=== PATIENT | female | born 1930 | race Asian ===

== ENCOUNTER 2017-12-01 20:14 | Inpatient (IN) | payer MEDICARE, OTHER ==
[~2017-12-01] VITALS: Ht 154.9 cm; Wt 53.5 kg
[2017-12-01] MEDS ORDERED: Isovue-300 100ml vial INJ PRN (20:45)
[2017-12-01] MEDS ORDERED: DIOVAN40 MG ORAL (21:02)
[2017-12-01] MEDS ORDERED: METOPROLOL SUC100 MG ORAL (21:02)
[2017-12-01] MEDS ORDERED: QUETIAPINE FUMA25 MG ORAL (21:02)
[2017-12-01] MEDS ORDERED: LEXAPRO10 MG ORAL (21:02)
[2017-12-01] MEDS ORDERED: DEXILANT60 MG ORAL (21:02)
[2017-12-01] MEDS ORDERED: TRAMADOL HCL50 MG ORAL (21:02)
[2017-12-01] MEDS ORDERED: NAMENDA10 MG ORAL (21:03)
--- NOTE | 2017-12-01 21:12 | Emergency Room Report ---
History of Present Illness General Chief Complaint: Altered Level of Consciousness Source: Patient Present Illness HPI Patient is a 87-year-old female who presented after increased altered level of consciousness. Per family member patient had been recently treated for urinary tract infection. Patient was noted to have recently been started on Seroquel after the onset of symptoms. Patient previous head CT which showed no evidence of intracranial hemorrhage. The patient was noted to have increased confusion which appear to be worse at night. Patient apparently had been increased difficulty with sleep as well as confusion. Patient prior history of dementia as well as gastroesophageal reflux disease. She been chronically taking Namenda as well as being recently started on Seroquel. Allergies: Coded Allergies: No Known Allergies (Unverified , 12/01/17) Patient History Past Medical History: see triage record Last Menstrual Period: na Reviewed Nursing Documentation: PMH: Agreed; PSxH: Agreed Nursing Documentation-PMH Hx Hypertension: Yes Hx Pacemaker: Yes Review of Systems All Other Systems: limited - by mental status Physical Exam Vital Signs Date Time Temp Pulse Resp B/P (MAP) Pulse Ox O2 Delivery O2 Flow Rate FiO2 12/01/17 20:22 97.9 60 18 185/83 98 Room Air 97.9 Sp02 EP Interpretation: reviewed, normal General Appearance: normal inspection, no apparent distress, alert, Chronically Ill Head: atraumatic ENT: normal ENT inspection, hearing grossly normal, normal voice, dry mucus membranes Neck: normal inspection, full range of motion, supple, no bony tend Respiratory: normal inspection, lungs clear, normal breath sounds, no respiratory distress, no retraction, no wheezing Cardiovascular #1: regular rate, rhythm, no edema Gastrointestinal: normal inspection, normal bowel sounds, non tender, soft, no guarding, no hernia Genitourinary: no CVA tenderness Musculoskeletal: normal inspection, normal range of motion, decreased range of motion Neurologic: normal inspection, responsive Psychiatric: normal inspection, judgement/insight normal, mood/affect normal Skin: normal inspection, normal color, no rash Medical Decision Making Diagnostic Impression: Primary Impression: FTT (failure to thrive) in adult Additional Impressions: Deep venous thrombosis Dementia Dehydration UTI (urinary tract infection) Closed compression fracture of L1 lumbar vertebra ER Course Patient presented for altered mental status. Differential diagnosis included but was not limited to ischemic stroke, subdural hematoma, subarachnoid hemorrhage, hypoglycemia, spinal cord injury, neurodegenerative disorder, urinary tract infection, hypoxemia.Because of complexity of patient's case laboratory testing and imaging studies were ordered.The patient has what appears to be chronic dementia however there appears to be some exacerbation recently.The patient's CT abdomen and pelvis read by radiology showed deep venous throat ecchymosis from the right, femoral vein to external iliac vein. A small exophytic left renal cyst compression fracture of L1 with 50% loss of height mild retropulsion. The patient was started on IV medications and Lovenox.. The patient was discussed with Dr. Velazquez for primary care physician for inpatient management Labs Test 12/01/17 21:49 12/01/17 22:30 Urine Color Yellow Urine Appearance Clear Urine pH 6 (4.5-8.0) Urine Specific [place] 1.010 (1.005-1.035) Urine Protein Negative (NEGATIVE) Urine Glucose (UA) Negative (NEGATIVE) Urine Ketones Negative (NEGATIVE) Urine Occult Blood 1+ (NEGATIVE) Urine Nitrite Negative (NEGATIVE) Urine Bilirubin Negative (NEGATIVE) Urine Urobilinogen Normal MG/DL (0.0-1.0) Urine Leukocyte Esterase 3+ (NEGATIVE) Urine RBC 2-4 /HPF (0 - 2) Urine WBC 2-4 /HPF (0 - 2) Urine Squamous Epithelial Cells Few /LPF (NONE/OCC) Urine Bacteria Few /HPF (NONE) White Blood Count 6.6 K/UL (4.8-10.8) Red Blood Count 4.09 M/UL (4.20-5.40) Hemoglobin 12.0 G/DL (12.0-16.0) Hematocrit 35.8 % (37.0-47.0) Mean Corpuscular Volume 88 FL (80-99) Mean Corpuscular Hemoglobin 29.4 PG (27.0-31.0) Mean Corpuscular Hemoglobin Concent 33.6 G/DL (32.0-36.0) Red Cell Distribution Width 11.8 % (11.6-14.8) Platelet Count 149 K/UL (150-450) Mean Platelet Volume 8.8 FL (6.5-10.1) Neutrophils (%) (Auto) 53.1 % (45.0-75.0) Lymphocytes (%) (Auto) 32.8 % (20.0-45.0) Monocytes (%) (Auto) 9.1 % (1.0-10.0) Eosinophils (%) (Auto) 4.0 % (0.0-3.0) Basophils (%) (Auto) 0.9 % (0.0-2.0) Sodium Level 137 MMOL/L (136-145) Potassium Level 4.6 MMOL/L (3.5-5.1) Chloride Level 104 MMOL/L (98-107) Carbon Dioxide Level 23 MMOL/L (21-32) Anion Gap 10 mmol/L (5-15) Blood Urea Nitrogen 27 mg/dL (7-18) Creatinine 1.2 MG/DL (0.55-1.30) Estimat Glomerular Filtration Rate mL/min (>60) Glucose Level 111 MG/DL (74-106) Lactic Acid Level 1.00 mmol/L (0.4-2.0) Calcium Level 9.6 MG/DL (8.5-10.1) Phosphorus Level 3.5 MG/DL (2.5-4.9) Magnesium Level 2.3 MG/DL (1.8-2.4) Total Bilirubin 0.4 MG/DL (0.2-1.0) Aspartate Amino Transf (AST/SGOT) 17 U/L (15-37) Alanine Aminotransferase (ALT/SGPT) 18 U/L (12-78) Alkaline Phosphatase 97 U/L (46-116) Total Creatine Kinase 46 U/L (26-308) Creatine Kinase MB 1.5 NG/ML (0.0-3.6) Creatine Kinase MB Relative Index 3.2 Troponin I 0.005 ng/mL (0.000-0.056) Pro-B-Type Natriuretic Peptide 1282 pg/mL (0-125) Total Protein 7.2 G/DL (6.4-8.2) Albumin 3.6 G/DL (3.4-5.0) Globulin 3.6 g/dL Albumin/Globulin Ratio 1.0 (1.0-2.7) Lipase 42 U/L (73-393) EKG Diagnostic Results Rate: other Rhythm: NSR ST Segments: no acute changes Rhythm Strip Diag. Results EP Interpretation: yes Rhythm: NSR, no PVC's, no ectopy, other Last Vital Signs Date Time Temp Pulse Resp B/P (MAP) Pulse Ox O2 Delivery O2 Flow Rate FiO2 12/01/17 20:22 97.9 60 18 185/83 98 Room Air 97.9 Status: unchanged Disposition: ADMITTED INPATIENT Condition: Serious Referrals: NON PHYSICIAN (PCP) Jeremiah Armando MD Dec 01, 2017 21:12
[2017-12-01 22:04] LABS: APPEARANCE,URINE CLEAR; BILIRUBIN, URINE NEGATIVE (NEGATIVE); COLOR,URINE YELLOW; GLUCOSE, URINE (UA) NEGATIVE (NEGATIVE); KETONES,URINE NEGATIVE (NEGATIVE); LEUKOCYTE ESTERASE ,URINE 3+ (NEGATIVE); NITRITE,URINE NEGATIVE (NEGATIVE); PH,URINE 6 (4.5-8.0); PROTEIN,URINE NEGATIVE (NEGATIVE); UROBILINOGEN,URINE NORMAL MG/DL (0.0-1.0)
[2017-12-01 22:51] LABS: BASOPHILS % (AUTO) 0.9 % (0.0-2.0); HEMATOCRIT 35.8 % (37.0-47.0); LYMPHOCYTES % (AUTO) 32.8 % (20.0-45.0); MEAN CORPUSCULAR VOLUME 88 FL (80-99); MONOCYTES % (AUTO) 9.1 % (1.0-10.0); NEUTROPHILS % (AUTO) 53.1 % (45.0-75.0); PLATELET COUNT 149 K/UL (150-450); RED BLOOD COUNT 4.09 M/UL (4.20-5.40); RED CELL DISTRIBUTION WIDTH 11.8 % (11.6-14.8); WHITE BLOOD COUNT 6.6 K/UL (4.8-10.8)
[2017-12-01] MEDS: Thiamine HCl 100 MG in D5W 55 ML IVPB SCH (22:57)
[2017-12-01 23:20] LABS: ANION GAP 10 mmol/L (5-15); BLOOD UREA NITROGEN 27 mg/dL (7-18); CALCIUM 9.6 MG/DL (8.5-10.1); CARBON DIOXIDE 23 MMOL/L (21-32); CHLORIDE 104 MMOL/L (98-107); CREATININE 1.2 MG/DL (0.55-1.30); POTASSIUM 4.6 MMOL/L (3.5-5.1); SODIUM 137 MMOL/L (136-145)
[2017-12-01 23:25] LABS: ALANINE AMINOTRANSFERASE 18 U/L (12-78); ALBUMIN 3.6 G/DL (3.4-5.0); ALKALINE PHOSPHATASE 97 U/L (46-116); ASPARTATE AMINO TRANSFERASE 17 U/L (15-37); BILIRUBIN,TOTAL 0.4 MG/DL (0.2-1.0); CKMB 1.5 NG/ML (0.0-3.6); CREATINE KINASE 46 U/L (26-308); PHOSPHORUS 3.5 MG/DL (2.5-4.9)
[2017-12-02] VITALS (7 sets, daily range): BP systolic 129–154; BP diastolic 45–72
[2017-12-02] MEDS ORDERED: Sodium Chloride 500ML 500 ML IV ONE
[2017-12-02] MEDS ORDERED: Enoxaparin 60mg Inj SUBQ ONE (01:00)
[2017-12-02] MEDS ORDERED: LORazepam Inj 2mg/ml 1ml IV PRN (03:00)
[2017-12-02] MEDS ORDERED: Nitroglycerin Subl 0.4mg tab SL PRN (03:15)
[2017-12-02] MEDS ORDERED: cefTRIAXone 1 GM in D5W 55 ML IVPB SCH (04:00)
[2017-12-02] MEDS ORDERED: Enoxaparin 60mg Inj SUBQ SCH (09:00)
[2017-12-02] MEDS: Enoxaparin 60mg Inj SUBQ SCH (09:19)
[2017-12-02] MEDS: Metoprolol Succinate XL 100mg tab ORAL SCH (09:21)
[2017-12-02] MEDS: Memantine 10mg tab ORAL SCH ×2 (09:22→17:49)
[2017-12-02 11:59] LABS: BASOPHILS % (AUTO) 1.1 % (0.0-2.0); EOSINOPHILS % (AUTO) 4.4 % (0.0-3.0); HEMATOCRIT 39.1 % (37.0-47.0); HEMOGLOBIN 12.8 G/DL (12.0-16.0); LYMPHOCYTES % (AUTO) 33.8 % (20.0-45.0); MEAN CORPUSCULAR VOLUME 90 FL (80-99); MONOCYTES % (AUTO) 7.6 % (1.0-10.0); NEUTROPHILS % (AUTO) 53.1 % (45.0-75.0); PLATELET COUNT 154 K/UL (150-450); RED BLOOD COUNT 4.37 M/UL (4.20-5.40); RED CELL DISTRIBUTION WIDTH 11.7 % (11.6-14.8); WHITE BLOOD COUNT 5.6 K/UL (4.8-10.8)
[2017-12-02 12:15] LABS: ALANINE AMINOTRANSFERASE 14 U/L (12-78); ALBUMIN 3.4 G/DL (3.4-5.0); ALBUMIN/GLOBULIN RATIO 0.9 (1.0-2.7); ALKALINE PHOSPHATASE 97 U/L (46-116); ANION GAP 8 mmol/L (5-15); ASPARTATE AMINO TRANSFERASE 18 U/L (15-37); BILIRUBIN,TOTAL 0.3 MG/DL (0.2-1.0); BLOOD UREA NITROGEN 19 mg/dL (7-18); CALCIUM 9.5 MG/DL (8.5-10.1); CARBON DIOXIDE 26 MMOL/L (21-32); CHLORIDE 106 MMOL/L (98-107); CREATININE 1.2 MG/DL (0.55-1.30); SODIUM 140 MMOL/L (136-145)
--- NOTE | 2017-12-02 12:19 | Diagnostic Imaging Report ---
Indication: Abdominal pain Technique: Continuous helical transaxial imaging of the abdomen and pelvis was obtained from the lung bases to the pubic symphysis during intravenous contrast administration. Coronal 2-D reformats were also obtained. Study obtained in a Siemens sensation [address] Automatic Exposure Control was utilized. Total Dose length Product (DLP): 877.[address] Dose Index Volume (CTDIvol): 17.49 mGy Comparison: None Findings: There is mild posterior basal atelectasis. Small hiatal hernia is present. There is a left renal cyst. Aorta is moderately calcified. The gallbladder is unremarkable in appearance. The pancreas and spleen are unremarkable. There is no adrenal mass. There is no hydronephrosis appreciated. Normal appendix noted. Diverticula demonstrated in the colon. No definite diverticulitis demonstrated. Uterus noted. No free fluid or free air identified. There is a filling defect within the right common femoral vein extending into the right iliac vein consistent with thrombosis. There is a right ovarian cyst measuring 1.5 cm. The bladder is unremarkable. There is a compression fracture of the L1 vertebra moderate in degree, acuity indeterminant. No bony retropulsion demonstrated. There is an anterolisthesis at L4-5 associated with hypertrophied facets and narrowing of the intervertebral disc. Similar findings at L5-S1. IMPRESSION: Deep venous thrombosis in the right femoral vein and iliac vein. Suggest confirmation with venous ultrasound. Compression fracture of the L1 vertebra, probably old. Correlate clinically. Degenerative changes in anterolistheses at L4-5 and L5-S1. Pacemaker Atherosclerotic disease Right ovarian cyst Diverticulosis of the colon Mild basilar atelectasis Left renal cyst. [facility] has communicated the preliminary results to the Emergency Department. Their findings are largely concordant with this report. The CT scanner at [facility] is accredited by the [employer] and the scans are performed using dose optimization techniques as appropriate to a performed exam including Automatic Exposure control.
--- NOTE | 2017-12-02 12:32 | Diagnostic Imaging Report ---
Indication: Dyspnea Comparison: None A single view chest radiograph was obtained. Findings: Pacemaker noted. No definite infiltrate or pulmonary vascular congestion identified. The heart is enlarged. The aorta is mildly enlarged consistent with atherosclerotic vascular disease. The bones are osteopenic. Impression: No acute disease
--- NOTE | 2017-12-02 13:30 | History and Physical Report ---
DATE OF ADMISSION: 12/02/2017 CHIEF COMPLAINT: Altered level of consciousness. HISTORY OF PRESENT ILLNESS: This is an 87-year-old female, who with recent history of being more confused in the past few days. The patient had a fall about a week ago and had a compression fracture that was confirmed with a CT scan as an outpatient. She also had urinary tract infection that was treated with oral antibiotic Cipro. However, the patient's confusion continued even with the oral antibiotic and the patient's family reported that she was getting up at night and leaving the apartment and confused. No fever or chills. No nausea or vomiting. No abdominal pain. She did have pain over her lower spine due to the compression fracture. PAST MEDICAL HISTORY: Includes history of hypertension and severe osteoarthritis of both knees and pacemaker. PAST SURGICAL HISTORY: Pacemaker placement ALLERGIES: No known drug allergies. SOCIAL HISTORY: The patient was living at home. No smoking history. No alcohol or drug use history. REVIEW OF SYSTEMS: Negative except for HPI. PHYSICAL EXAMINATION: VITAL SIGNS: Temperature 97.9, pulse 60, respirations 18, blood pressure in the emergency room 185/83, and pulse oximetry 98% on room air. GENERAL APPEARANCE: The patient is alert, slightly confused, and no apparent distress. HEENT: Normocephalic and normochromic. Extraocular muscles intact. NECK: Supple. No lymphadenopathy. CARDIOVASCULAR: Regular rate and rhythm. No murmur. No gallop. LUNG: Clear to auscultation bilaterally. No wheezing or rales. GASTROINTESTINAL: Soft, nontender, nondistended. Positive bowel sounds. EXTREMITIES: No edema, cyanosis, or clubbing NEUROLOGIC: Respond to commands. SKIN: No rash, but she has slight wound on her knee that is healing. LABORATORY AND DIAGNOSTIC DATA: Include WBC 6.6, hemoglobin 12, hematocrit 35.8, platelets 149, and neutrophils 53. Sodium 137, potassium 4.6, chloride 104, bicarb is 23, BUN 27, creatinine 1.2, glucose 111, calcium 9.6, phosphorus 3.5, and magnesium 2.3. AST is 17, ALT 18, and alkaline phosphatase 97. CK-MB 1.5. Troponin 0.05. BNP 1282. Albumin 3.6. Lipase 42 and lactic acid is 1. Urine showed +3 leukocytes and 2 to 4 rbc's, 2 to 4 wbc, few bacteria, and +[address] of abdomen and pelvis and spine were done showed consistent with compression fracture of L1 with a 50% loss of the height. Also she had DVT, but ultrasound of the lower extremity was not done. IMPRESSION: This is an 87-year-old female, who will be admitted for DVT, urinary tract infection, and failure to thrive. 1. UTI. 2. Failure to thrive. 3. Deep venous thrombosis. We will completely confirm with ultrasound. 4. Dementia. 5. Close compression fracture of L1, lumbar spine. 6. Hypertension. 7. Severe osteoarthritis of the knees. The patient will be started on IV antibiotics for urinary tract infection and we will start Lovenox for DVT and will also confirm with ultrasound, we will consider to changing it to oral medications as outpatient. 8. The patient will be admitted for minimum of two-night stay and possibly will be transferred to the shelter facility. Palak Kenney M.D. DR: LAURA JOB#: [id number] CC: MOHIT
[2017-12-02] MEDS: Thiamine HCl 100 MG in D5W 55 ML IVPB SCH (21:08)
[2017-12-03] VITALS (7 sets, daily range): BP systolic 136–163; BP diastolic 62–81
[2017-12-03] MEDS: cefTRIAXone 1 GM in D5W 110 ML IVPB SCH (06:09)
[2017-12-03] MEDS: Enoxaparin 60mg Inj SUBQ SCH (08:09)
[2017-12-03] MEDS: Memantine 10mg tab ORAL SCH ×2 (08:10→17:15)
[2017-12-03] MEDS: Metoprolol Succinate XL 100mg tab ORAL SCH (08:12)
[2017-12-03 08:32] LABS: BASOPHILS % (AUTO) 0.7 % (0.0-2.0); EOSINOPHILS % (AUTO) 3.3 % (0.0-3.0); HEMATOCRIT 32.9 % (37.0-47.0); HEMOGLOBIN 11.6 G/DL (12.0-16.0); LYMPHOCYTES % (AUTO) 34.1 % (20.0-45.0); MEAN CORPUSCULAR VOLUME 89 FL (80-99); PLATELET COUNT 138 K/UL (150-450); RED CELL DISTRIBUTION WIDTH 11.6 % (11.6-14.8); WHITE BLOOD COUNT 3.8 K/UL (4.8-10.8)
[2017-12-03 08:54] LABS: ANION GAP 10 mmol/L (5-15); BLOOD UREA NITROGEN 13 mg/dL (7-18); CALCIUM 9.7 MG/DL (8.5-10.1); CARBON DIOXIDE 24 MMOL/L (21-32); CHLORIDE 107 MMOL/L (98-107); CREATININE 1.1 MG/DL (0.55-1.30); POTASSIUM 4.2 MMOL/L (3.5-5.1); SODIUM 141 MMOL/L (136-145)
[2017-12-03] MEDS ORDERED: Fleet's Enema 133ml RECTAL SCH (10:00)
--- NOTE | 2017-12-03 10:09 | General Progress Note ---
Assessment/Plan Status: stable Status Narrative 1. UTI - Cont Rocephin and follow up urine culture. 2. Dehydration - resolved. D/C IVF. 3. Deep venous thrombosis by CT. U/S pending. 4. Dementia - cont Namenda 10 mg po BID. 5. Close compression fracture of L1, lumbar spine - cont Pain management. Pain well controlled. 6. Hypertension - increase Avapro 75 mg one po daily. cont Toprol XL 100 mg daily. 7. Severe osteoarthritis of the knees - 8. Generalized Weakness - PT and OT eval and txt ordered. 9. Constipation - Feet enema ordered. Subjective Date patient seen: Dec 03, 2017 Time patient seen: 09:30 Constitutional: Reports: weakness HEENT: Reports: no symptoms Cardiovascular: Reports: no symptoms Respiratory: Reports: no symptoms Gastrointestinal/Abdominal: Reports: no symptoms Genitourinary: Reports: no symptoms Neurologic/Psychiatric: Reports: no symptoms Endocrine: Reports: no symptoms Hematologic/Lymphatic: Reports: no symptoms Allergies: Coded Allergies: No Known Allergies (Unverified , 12/01/17) Subjective She is doing better today. no sob or chest pain. no Nausea or Vomiting. Afebrile. Objective Last 24 Hour Vital Signs Date Time Temp Pulse Resp B/P (MAP) Pulse Ox O2 Delivery O2 Flow Rate FiO2 12/03/17 08:12 60 163/70 12/03/17 08:10 163/70 12/03/17 07:57 98.3 60 18 163/70 96 Room Air 98.3 12/03/17 04:00 97.9 65 20 157/71 94 Room Air 97.9 12/03/17 00:00 97.2 68 20 149/63 97 Room Air 97.2 12/02/17 20:00 97.6 61 21 150/71 96 Room Air 97.6 12/02/17 16:00 97.2 64 18 131/48 95 Room Air 97.2 12/02/17 12:02 97.5 60 18 152/72 98 Room Air 97.5 Intake and Output 12/02/17 12/03/17 19:00 07:00 Intake Total 1110 ml 596 ml Output Total 150 ml Balance 1110 ml 446 ml Intake Oral 390 ml IV Total 720 ml 596 ml Output Urine Total 150 ml # Voids 4 1 Laboratory Tests 12/02/17 11:25: White Blood Count 5.6, Red Blood Count 4.37, Hemoglobin 12.8, Hematocrit 39.1, Mean Corpuscular Volume 90, Mean Corpuscular Hemoglobin 29.4, Mean Corpuscular Hemoglobin Concent 32.8, Red Cell Distribution Width 11.7, Platelet Count 154, Mean Platelet Volume 8.6, Neutrophils (%) (Auto) 53.1, Lymphocytes (%) (Auto) 33.8, Monocytes (%) (Auto) 7.6, Eosinophils (%) (Auto) 4.4H, Basophils (%) (Auto ) 1.1, Sodium Level 140, Potassium Level 5.0, Chloride Level 106, Carbon Dioxide Level 26, Anion Gap 8, Blood Urea Nitrogen 19H, Creatinine 1.2, Estimat Glomerular Filtration Rate , Glucose Level 107H, Calcium Level 9.5, Total Bilirubin 0.3, Aspartate Amino Transf (AST/SGOT) 18, Alanine Aminotransferase ( ALT/SGPT) 14, Alkaline Phosphatase 97, Total Protein 7.2, Albumin 3.4, Globulin 3.8, Albumin/Globulin Ratio 0.9L 12/03/17 07:20: White Blood Count 3.8L, Red Blood Count 3.70L, Hemoglobin 11.6L, Hematocrit 32.9L, Mean Corpuscular Volume 89, Mean Corpuscular Hemoglobin 31.3H, Mean Corpuscular Hemoglobin Concent 35.3, Red Cell Distribution Width 11.6, Platelet Count 138L, Mean Platelet Volume 8.5, Neutrophils (%) (Auto) 55.0, Lymphocytes ( %) (Auto) 34.1, Monocytes (%) (Auto) 7.0, Eosinophils (%) (Auto) 3.3H, Basophils (%) (Auto) 0.7, Sodium Level 141, Potassium Level 4.2, Chloride Level 107, Carbon Dioxide Level 24, Anion Gap 10, Blood Urea Nitrogen 13, Creatinine 1.1, Estimat Glomerular Filtration Rate , Glucose Level 109H, Calcium Level 9.7 Height (Feet): 5 Height (Inches): 1.00 Weight (Pounds): 118 General Appearance: alert EENT: normal ENT inspection, TMs normal Neck: non-tender, normal alignment, supple Cardiovascular: normal peripheral pulses, normal rate, regular rhythm Respiratory/Chest: chest wall non-tender, lungs clear, normal breath sounds Abdomen: normal bowel sounds, non tender, soft, no organomegaly Extremities: normal range of motion, non-tender Edema: no edema noted Arm (L), no edema noted Arm (R), no edema noted Leg (L), no edema noted Leg (R), no edema noted Pedal (L), no edema noted Pedal (R), no edema noted Generalized Neurologic: alert, responsive Skin: warm/dry Lymphatic: normal anterior cervical (L), normal anterior cervical (R), normal posterior cervical (L), normal posterior cervical (R), normal submandibular (L) , normal submandibular (R), normal supraclavicular (L), normal supraclavicular ( R), normal axillary (L), normal axillary (R), normal inguinal (L), normal inguinal (R), normal other [facility]U Dec 03, 2017 10:09
[2017-12-03] MEDS ORDERED: Tubing IV Secondary IV ONE (13:30)
[2017-12-03] MEDS ORDERED: NS 275ml ONE (13:30)
[2017-12-03] MEDS: traMADol 50mg tab ORAL PRN (14:02)
[2017-12-04 04:07] VITALS: BP 135/79
[2017-12-04] MEDS: cefTRIAXone 1 GM in D5W 110 ML IVPB SCH (04:55)
[2017-12-04 07:57] VITALS: BP 101/65
[2017-12-04 08:20] LABS: BASOPHILS % (AUTO) 0.7 % (0.0-2.0); EOSINOPHILS % (AUTO) 2.8 % (0.0-3.0); HEMATOCRIT 34.1 % (37.0-47.0); HEMOGLOBIN 11.7 G/DL (12.0-16.0); LYMPHOCYTES % (AUTO) 38.6 % (20.0-45.0); MEAN CORPUSCULAR VOLUME 90 FL (80-99); MONOCYTES % (AUTO) 8.2 % (1.0-10.0); NEUTROPHILS % (AUTO) 49.8 % (45.0-75.0); PLATELET COUNT 142 K/UL (150-450); RED BLOOD COUNT 3.81 M/UL (4.20-5.40); RED CELL DISTRIBUTION WIDTH 11.6 % (11.6-14.8); WHITE BLOOD COUNT 4.6 K/UL (4.8-10.8)
[2017-12-04 09:00] LABS: ANION GAP 12 mmol/L (5-15); BLOOD UREA NITROGEN 14 mg/dL (7-18); CALCIUM 9.2 MG/DL (8.5-10.1); CARBON DIOXIDE 23 MMOL/L (21-32); CHLORIDE 108 MMOL/L (98-107); CREATININE 1.1 MG/DL (0.55-1.30); POTASSIUM 3.7 MMOL/L (3.5-5.1); SODIUM 143 MMOL/L (136-145)
[2017-12-04] MEDS: Metoprolol Succinate XL 100mg tab ORAL SCH (09:00)
[2017-12-04] MEDS: Memantine 10mg tab ORAL SCH ×2 (09:12→17:44)
[2017-12-04] MEDS: Xarelto 10mg tab ORAL SCH ×2 (09:14→17:45)
[2017-12-04] MEDS: traMADol 50mg tab ORAL PRN (09:14)
[2017-12-04 12:01] VITALS: BP 126/65
--- NOTE | 2017-12-04 13:03 | General Progress Note ---
Assessment/Plan Status: stable Assessment/Plan 1. UTI - Cont Rocephin. Urine Cx not done. will repeat U/A today. 2. Deep venous thrombosis of Femoral Vein, Popliteal Vein - cont Xarelto 20 mg one po daily and off lovenox. 3. Dementia - cont Namenda 10 mg po BID. 4. Close compression fracture of L1, lumbar spine - cont Pain management. Pain well controlled. 5. Hypertension - controlled. cont Avapro 75 mg one po daily. cont Toprol XL 100 mg daily. 6. Severe osteoarthritis of the knees - stable. 7. Generalized Weakness - PT and OT eval and txt ordered. D/C planning to SNF tomorrow. 8. Constipation - improved. Subjective Date patient seen: Dec 04, 2017 Time patient seen: 12:30 Constitutional: Reports: weakness HEENT: Reports: no symptoms Cardiovascular: Reports: no symptoms Respiratory: Reports: no symptoms Gastrointestinal/Abdominal: Reports: no symptoms Genitourinary: Reports: no symptoms Neurologic/Psychiatric: Reports: no symptoms Endocrine: Reports: no symptoms Hematologic/Lymphatic: Reports: no symptoms Allergies: Coded Allergies: No Known Allergies (Unverified , 12/01/17) Subjective She has Rt leg pain where she has DVT but it is controlled with tramadol. no sob or chest pain. no Nausea or Vomiting. Afebrile. Objective Last 24 Hour Vital Signs Date Time Temp Pulse Resp B/P (MAP) Pulse Ox O2 Delivery O2 Flow Rate FiO2 12/04/17 12:01 97.9 72 17 126/65 Room Air 97.9 12/04/17 09:00 101/65 12/04/17 09:00 60 101/65 12/04/17 07:57 98.6 60 18 101/65 Room Air 98.6 12/04/17 04:07 97.7 82 18 135/79 96 Room Air 97.7 12/04/17 00:00 98 Room Air 12/03/17 23:56 98.3 68 18 140/81 98 Room Air 98.3 12/03/17 20:02 97.4 65 20 136/64 98 Room Air 97.4 12/03/17 20:02 98 Room Air 12/03/17 16:13 98.1 62 18 141/73 Room Air 98.1 Intake and Output 12/03/17 12/04/17 19:00 07:00 # Voids 3 Laboratory Tests 12/04/17 07:40: White Blood Count 4.6L, Red Blood Count 3.81L, Hemoglobin 11.7L, Hematocrit 34.1L, Mean Corpuscular Volume 90, Mean Corpuscular Hemoglobin 30.8, Mean Corpuscular Hemoglobin Concent 34.4, Red Cell Distribution Width 11.6, Platelet Count 142L, Mean Platelet Volume 9.1, Neutrophils (%) (Auto) 49.8, Lymphocytes ( %) (Auto) 38.6, Monocytes (%) (Auto) 8.2, Eosinophils (%) (Auto) 2.8, Basophils (%) (Auto) 0.7, Sodium Level 143, Potassium Level 3.7, Chloride Level 108H, Carbon Dioxide Level 23, Anion Gap 12, Blood Urea Nitrogen 14, Creatinine 1.1, Estimat Glomerular Filtration Rate , Glucose Level 156H, Calcium Level 9.2 Height (Feet): 5 Height (Inches): 1.00 Weight (Pounds): 118 General Appearance: no apparent distress, alert EENT: normal ENT inspection Neck: non-tender, normal alignment, supple Cardiovascular: normal peripheral pulses, normal rate, regular rhythm Respiratory/Chest: chest wall non-tender, lungs clear, normal breath sounds Abdomen: normal bowel sounds, non tender, soft Extremities: normal range of motion, calf tenderness Edema: no edema noted Arm (L), no edema noted Arm (R), no edema noted Leg (L), no edema noted Leg (R), no edema noted Pedal (L), no edema noted Pedal (R), no edema noted Generalized Neurologic: alert, responsive Skin: warm/dry Lymphatic: normal anterior cervical (L), normal anterior cervical (R), normal posterior cervical (L), normal posterior cervical (R), normal submandibular (L) , normal submandibular (R), normal supraclavicular (L), normal supraclavicular ( R), normal axillary (L), normal axillary (R), normal inguinal (L), normal inguinal (R), normal other [facility]U Dec 04, 2017 13:03
[2017-12-04 15:51] VITALS: BP 136/74
[2017-12-04 19:28] LABS: APPEARANCE,URINE SLIGHTLY CLOUDY; BILIRUBIN, URINE NEGATIVE (NEGATIVE); COLOR,URINE AMBER; GLUCOSE, URINE (UA) NEGATIVE (NEGATIVE); KETONES,URINE NEGATIVE (NEGATIVE); LEUKOCYTE ESTERASE ,URINE 1+ (NEGATIVE); NITRITE,URINE NEGATIVE (NEGATIVE); PH,URINE 6.5 (4.5-8.0); PROTEIN,URINE 1+ (NEGATIVE); UROBILINOGEN,URINE NORMAL MG/DL (0.0-1.0)
[2017-12-04 19:58] VITALS: BP 146/64
[2017-12-05] VITALS: BP 135/65
[2017-12-05 04:00] VITALS: BP 140/60
[2017-12-05] MEDS: cefTRIAXone 1 GM in D5W 110 ML IVPB SCH (05:00)
[2017-12-05 06:50] LABS: BASOPHILS % (AUTO) 0.8 % (0.0-2.0); EOSINOPHILS % (AUTO) 3.9 % (0.0-3.0); HEMATOCRIT 33.4 % (37.0-47.0); LYMPHOCYTES % (AUTO) 39.5 % (20.0-45.0); MEAN CORPUSCULAR VOLUME 89 FL (80-99); MONOCYTES % (AUTO) 9.1 % (1.0-10.0); NEUTROPHILS % (AUTO) 46.6 % (45.0-75.0); PLATELET COUNT 145 K/UL (150-450); RED BLOOD COUNT 3.74 M/UL (4.20-5.40); RED CELL DISTRIBUTION WIDTH 11.8 % (11.6-14.8); WHITE BLOOD COUNT 4.7 K/UL (4.8-10.8)
[2017-12-05 07:09] LABS: ANION GAP 9 mmol/L (5-15); BLOOD UREA NITROGEN 18 mg/dL (7-18); CALCIUM 9.1 MG/DL (8.5-10.1); CARBON DIOXIDE 25 MMOL/L (21-32); CHLORIDE 107 MMOL/L (98-107); CREATININE 1.2 MG/DL (0.55-1.30); POTASSIUM 3.9 MMOL/L (3.5-5.1); SODIUM 141 MMOL/L (136-145)
[2017-12-05 08:00] VITALS: BP 112/67
[2017-12-05] MEDS: Memantine 10mg tab ORAL SCH (08:25)
[2017-12-05] MEDS: Xarelto 10mg tab ORAL SCH (08:25)
[2017-12-05] MEDS: Metoprolol Succinate XL 100mg tab ORAL SCH (08:25)
--- NOTE | 2017-12-05 08:51 | General Progress Note ---
Assessment/Plan Status: stable Assessment/Plan 1. UTI - Cont Rocephin, last dose on 12/06/17 in SNF. Urine cx negative so far today. will f/u final urine cx as outpatient. 2. Deep venous thrombosis of Femoral Vein, Popliteal Vein - cont Xarelto 20 mg one po daily. 3. Dementia - cont Namenda 10 mg po BID. 4. Close compression fracture of L1, lumbar spine - cont Pain management. Pain well controlled. 5. Hypertension - controlled. cont Avapro 75 mg one po daily. cont Toprol XL 100 mg daily. 6. Severe osteoarthritis of the knees - stable. 7. Generalized Weakness - D/C to SNF, [facility] today. 8. Constipation - resolved. Subjective Date patient seen: Dec 05, 2017 Time patient seen: 08:30 Constitutional: Reports: weakness HEENT: Reports: no symptoms Cardiovascular: Reports: no symptoms Respiratory: Reports: no symptoms Gastrointestinal/Abdominal: Reports: no symptoms Genitourinary: Reports: no symptoms Neurologic/Psychiatric: Reports: no symptoms Endocrine: Reports: no symptoms Hematologic/Lymphatic: Reports: no symptoms Allergies: Coded Allergies: No Known Allergies (Unverified , 12/01/17) Subjective She is doing well today. No sob or chest pain. No Nausea or Vomiting. Afebrile. Objective Last 24 Hour Vital Signs Date Time Temp Pulse Resp B/P (MAP) Pulse Ox O2 Delivery O2 Flow Rate FiO2 12/05/17 08:25 112/67 12/05/17 08:25 60 112/67 12/05/17 08:00 98.4 60 18 112/67 98.4 12/05/17 04:00 92 Room Air 12/05/17 04:00 97.5 81 18 140/60 92 97.5 12/05/17 00:24 93 Room Air 12/05/17 00:00 97.9 79 18 135/65 93 97.9 12/04/17 20:00 93 Room Air 12/04/17 19:58 97.7 60 18 146/64 93 97.7 12/04/17 15:51 98.4 69 17 136/74 96 Room Air 98.4 12/04/17 12:01 97.9 72 17 126/65 Room Air 97.9 12/04/17 09:00 101/65 12/04/17 09:00 60 101/65 Intake and Output 12/04/17 12/05/17 19:00 07:00 Intake Total 120 ml Balance 120 ml Intake Oral 120 ml # Voids 4 Laboratory Tests 12/04/17 17:30: Urine Color [place], Urine Appearance Slightly cloudy, Urine pH 6.5, Urine Specific [place] 1.015, Urine Protein 1+H, Urine Glucose (UA) Negative, Urine Ketones Negative, Urine Occult Blood 2+H, Urine Nitrite Negative, Urine Bilirubin Negative, Urine Ictotest Negative, Urine Urobilinogen Normal, Urine Leukocyte Esterase 1+H, Urine RBC 5-10H, Urine WBC 5-10H, Urine Squamous Epithelial Cells ManyH, Urine Bacteria Few, Urine Mucus FewH 12/05/17 05:10: White Blood Count 4.7L, Red Blood Count 3.74L, Hemoglobin 11.0L, Hematocrit 33.4L, Mean Corpuscular Volume 89, Mean Corpuscular Hemoglobin 29.4, Mean Corpuscular Hemoglobin Concent 32.9, Red Cell Distribution Width 11.8, Platelet Count 145L, Mean Platelet Volume 8.6, Neutrophils (%) (Auto) 46.6, Lymphocytes ( %) (Auto) 39.5, Monocytes (%) (Auto) 9.1, Eosinophils (%) (Auto) 3.9H, Basophils (%) (Auto) 0.8, Sodium Level 141, Potassium Level 3.9, Chloride Level 107, Carbon Dioxide Level 25, Anion Gap 9, Blood Urea Nitrogen 18, Creatinine 1.2, Estimat Glomerular Filtration Rate , Glucose Level 94, Calcium Level 9.1 Height (Feet): 5 Height (Inches): 1.00 Weight (Pounds): 118 General Appearance: no apparent distress, alert EENT: normal ENT inspection Neck: non-tender, normal alignment, supple Cardiovascular: normal peripheral pulses, normal rate, regular rhythm Respiratory/Chest: chest wall non-tender, lungs clear, normal breath sounds Abdomen: normal bowel sounds, non tender, soft Extremities: non-tender Edema: no edema noted Arm (L), no edema noted Arm (R), no edema noted Leg (L), no edema noted Leg (R), no edema noted Pedal (L), no edema noted Pedal (R), no edema noted Generalized Neurologic: alert, responsive Skin: warm/dry Lymphatic: normal anterior cervical (L), normal anterior cervical (R), normal posterior cervical (L), normal posterior cervical (R), normal submandibular (L) , normal submandibular (R), normal supraclavicular (L), normal supraclavicular ( R), normal axillary (L), normal axillary (R), normal inguinal (L), normal inguinal (R), normal other [facility]U Dec 05, 2017 08:51
[2017-12-05] MEDS ORDERED: NAMENDA10 MG ORAL (08:57)
[2017-12-05] MEDS ORDERED: CLONIDINE0.1 MG ORAL (08:57)
[2017-12-05] MEDS ORDERED: XARELTO10 MG ORAL (08:57)
[2017-12-05] MEDS ORDERED: AVAPRO75 MG ORAL (08:57)
[2017-12-05] MEDS ORDERED: CEFTRIAXON1 GM/50 ML IV (08:57)
[2017-12-05] MEDS ORDERED: SEROQUEL25 MG ORAL (08:57)
[2017-12-05 12:00] VITALS: BP 130/59
--- NOTE | 2017-12-05 19:45 | Discharge Summary ---
DATE OF ADMISSION: 12/02/2017 DATE OF DISCHARGE: 12/05/2017 HOSPITAL COURSE: This 87-year-old female, who came in for complaint of confusion and altered for the past few days prior to admission. The patient had an urinary tract infection as an outpatient and was started on oral antibiotics, which failed and family decided to bring the patient in for IV antibiotic and evaluation. While in the hospital, the patient noticed to have a DVT of the right femoral veins and popliteal veins on the right side. The patient was started on Lovenox followed by [facility] and will be continued as an outpatient in the rehabilitation and will have the ultrasound done in 3 months following hospital discharge. The patient also started on IV Rocephin for urinary tract infection and responded well to treatment and followup. The patient blood pressure medication was up and increase to control the blood pressure better while in the hospital. Also her dementia medication Namenda was increased to better control her dementia. She will be discharged to half-way facility for physical therapy due to generalized weakness as well. DISCHARGE DIAGNOSES: Includes, 1. Urinary tract infection. 2. Deep venous thrombosis of the right femoral vein and popliteal vein. 3. Dementia. 4. Close compression fracture of L1 prior to admission. 5. Hypertension. 6. Severe osteoarthritis of the knee. 7. Generalized weakness. 8. Constipation, resolved. DISCHARGE MEDICATIONS: Include ceftriaxone 1 g IV daily for 2 more days, clonidine 0.1 mg b.i.d. p.r.n. for systolic blood pressure greater than 160, 75 mg p.o. daily, Namenda 10 mg b.i.d., and Seroquel 25 mg q.h.s., Xarelto 20 mg p.o. daily. DISPOSITION: The patient will be discharged to [facility] today and I will follow the patient in a few days. Palak Kenney M.D. DR: ROSA JOB#: [id number] CC:
--- NOTE | 2017-12-06 14:36 | Cardiology Report ---
APPROVED REPORT EKG Measurement Heart [id number] av sequential pacing
--- NOTE | 2017-12-07 11:46 | Diagnostic Imaging Report ---
APPROVED REPORT CPT Code: 23978 Present Symptoms Comments: BILATERAL LEGS PAIN. RIGHT LEG: Venous imaging reveals non-occlusive acute thrombus in the common femoral to politeal veins and posterior tibilal veins. Imaging reveals Greater saphenous vein also within normal limits. Venous imaging also reveals acute thrombus in the isolated soleal vein. LEFT LEG: Venous imaging reveals a patent deep venous system. There is no evidence of thrombus within the femoral, popliteal or tibial segments. The greater saphenous vein is also within normal limits. Doppler indicates normal spontaneous flow within these segments.
[2017-12-25] MEDS ORDERED: Xarelto 10mg tab ORAL SCH (09:00)
== END 2017-12-05 14:00 | DRG 690 ==
LOC: EMR 20:44 → 4E 12-02 00:37 → EDBEDREQ 12-02 00:56 → 4W 12-04 13:38
DX: N39.0 Urinary tract infection, site not specified (principal); S32.018A Other fracture of first lumbar vertebra, initial encounter for closed fracture; I82.411 Acute embolism and thrombosis of right femoral vein; I82.431 Acute embolism and thrombosis of right popliteal vein; W19.XXXA Unspecified fall, initial encounter; F03.90 Unspecified dementia, unspecified severity, without behavioral disturbance, psychotic disturbance, mood disturbance, and anxiety; I10 Essential (primary) hypertension; R53.1 Weakness; K59.00 Constipation, unspecified; M17.0 Bilateral primary osteoarthritis of knee
CPT/HCPCS: 36415; 71045; 74177; 80048; 80053; 81003; 82550; 82553; 83605; 83690; 83735; 83880; 84100; 84484; 85025; 87040; 87086; 93005; 93970; 99285